=== PATIENT | male | born 1975 | race Caucasian/White ===

== ENCOUNTER 2024-03-13 09:52 | Emergency (ER) | payer BC, OTHER ==
[2024-03-13] MEDS ORDERED: NA CHLORIDE 0.9% 1,000 ML ONE (10:06)
[2024-03-13 10:32] LABS: Absolute Basophils 0.1 K/uL (0-0.5); Absolute Eosinophils 0.1 K/uL (0-0.5); Absolute Lymphocytes (CBC) 2.5 K/uL (0.7-4.9); Absolute Monocytes 0.5 K/uL (0.1-1.3); Absolute Neutrophil 5.3 K/uL (1.8-8.0); Basophils % 0.6 % (0-1.3); Eosinophils % 1.6 % (0-4.4); Hematocrit 28.6 % (39.6-49.0); Hemoglobin 9.4 g/dL (13.6-17.9); Lymphocytes % 29.3 % (15.3-44.8); MCH 26.5 pg (27.0-35.0); MCHC 32.9 g/dL (32.0-36.0); MCV 80.6 fL (80-100); Monocytes % 5.5 % (3.3-12.3); Platelets 361 thou/uL (152-406); RBC Red Blood Cell Count 3.55 M/uL (4.33-5.43); Red Cell Distribution Width 14.1 % (12.1-15.2)
[2024-03-13 10:51] LABS: ALT/SGPT 17 U/L (16-61); Albumin 3.7 g/dL (3.4-5.0); Albumin/Globulin Ratio 1.1 (1.1-1.8); Alkaline Phosphatase 53 U/L (45-117); Anion Gap 10.3 mEq/L (5.0-15.0); BUN Blood Urea Nitrogen 11 mg/dL (7-18); Bicarbonate 25 mEq/L (21-32); Bilirubin Total 0.3 mg/dL (0.2-1.0); Globulin 3.3 g/dL (2.3-3.5); Glomerular Filtration Rate 65 ml/min (=/>90); Glucose Level 172 mg/dL (74-106); Potassium 3.3 mEq/L (3.5-5.1); Sodium Level 140 mEq/L (136-145)
[2024-03-13 10:52] LABS: AST/SGOT < 10 U/L (15-37)
--- NOTE | 2024-03-13 11:23 | ER ---
Nurse's Notes [facility] Name: Alex Burgos II Age: 48 yrs Sex: Male : 1975 Arrival Date: 03/13/2024 Time: 09:52 Bed 15 Private MD: Diagnosis: Other hemorrhoids-INTERNAL , BANDED;GI Bleed/ Gastrointestinal hemorrhage, unspecified-LOWER;Acute posthemorrhagic anemia Presentation: 03/13 10:07 Chief complaint: Patient states: bright red blood in stool x 6 weeks. Dizziness that ss began 4 days ago. Coronavirus screen: Client denies travel out of the [place] in the last 14 days. Ebola Screen: Patient denies exposure to infectious person. Patient denies travel to an Ebola-affected area in the 21 days before illness onset. 10:07 Method Of Arrival: Ambulatory ss 10:11 Initial Sepsis Screen: Does the patient meet any 2 criteria? No. Patient's initial ss sepsis screen is negative. Does the patient have a suspected source of infection? No. Patient's initial sepsis screen is negative. Risk Assessment: Do you want to hurt yourself or someone else? Patient reports no desire to harm self or others. 10:11 Acuity: ERIKA 3 ss 10:12 Onset of symptoms was January 2024. ss Historical: - Allergies: 10:13 No Known Allergies; ss - Home Meds: 10:13 None [Active]; ss - PMHx: 10:33 None; ss - PSHx: 10:33 hemorrhoid banding; ss - Immunization history:: Client reports having NOT received the Covid vaccine. - Infectious Disease History:: Denies. - Family history:: not pertinent. - Social history:: Smoking status: Patient reports the use of cigarette tobacco products, smokes one-half pack cigarettes per day. Screenin:34 Abuse screen: Denies threats or abuse. Denies injuries from another. Nutritional ss screening: No deficits noted. Tuberculosis screening: Never had TB. 10:46 [facility] ED Fall Risk Assessment (Adult) History of falling in the last 3 months, ko1 including since admission No falls in past 3 months (0 pts) Confusion or Disorientation No (0 pts) Intoxicated or Sedated No (0 pts) Impaired Gait No (0 pts) Mobility Assist Device Used No (0 pt) Altered Elimination No (0 pt) Score/Fall Risk Level 0 - 2 = Low Risk Oriented to surroundings, Maintained a safe environment, Educated pt \T\ family on fall prevention, incl call for assistance when getting out of bed, Assessed \T\ reinforced patient's understanding of fall precautions, Provided non-skid footwear, Hourly rounding (assess needs \T\ fall precautionary measures) done. Assessment: 10:34 Reassessment: when asked patient initially stated yes to history of varices, but after ss asking again and clarifying, patient and family member stated that in fact he does NOT have hx of varices and that it was a hemorrhoid banding procedure he has had done in the past. Dr. Sarkar and Dr. Fowler notified. Dr. Fowler at bedside assessing pt at this time. 11:00 General: Appears in no apparent distress. Behavior is calm, cooperative, appropriate ko1 for age. Pain: Denies pain. Neuro: No deficits noted. Cardiovascular: No deficits noted. Respiratory: No deficits noted. GI: Reports rectal bleeding. : No deficits noted. EENT: No deficits noted. Derm: No deficits noted. Musculoskeletal: No deficits noted. Vital Signs: 10:07 BP 129 / 83; Pulse 95; Resp 16; Temp 97.8; Pulse Ox 100% on R/A; Weight 77.11 kg; ss Height 5 ft. 6 in. ; Pain 0/10; 10:46 BP 101 / 70; Pulse 85; Resp 15; Pulse Ox 99% ; ko1 10:56 BP 119 / 72 LA Supine (auto/reg); Pulse 85; ko1 10:57 BP 116 / 76 LA Sitting (auto/reg); Pulse 88; ko1 10:58 BP 117 / 80 LA Standing (auto/reg); Pulse 82; ko1 10:07 Body Mass Index 27.44 (77.11 kg, 167.64 cm) ss 10:07 Pain Scale: Adult ss ED Course: 09:55 Patient arrived in ED. ra3 09:58 Omer Sarkar MD is Attending Physician. jung 10:00 Archana Arzola, CATHY is Primary Nurse. ko1 10:11 Triage completed. ss 10:13 Arm band placed on right wrist. ss 10:15 Initial lab(s) drawn, by me, sent to lab. Inserted saline lock: 20 gauge in right ko1 forearm, using aseptic technique. Blood collected. Flushed with 10 mL NS. 10:18 CBC with Diff Sent. ko1 10:18 Comprehensive Metabolic Panel Sent. ko1 10:46 Patient has correct armband on for positive identification. Placed in gown. Bed in low ko1 position. Call light in reach. Side rails up X 1. Provided Education on: labs. Client placed on continuous cardiac and pulse oximetry monitoring. NIBP monitoring applied. child monitor on. Door closed. Noise minimized. Lights dimmed. Warm blanket given. Pillow given. 10:46 No provider procedures requiring assistance completed. ko1 11:23 Yordan Fowler MD is Referral Physician. [facility] 11:23 Sher Mishra MD is Referral Physician. [facility] 11:46 PT-INR Sent. ko1 11:49 Lab(s) recollected, by me, sent to lab. em1 12:00 IV discontinued, intact, bleeding controlled, No redness/swelling at site. Pressure ko1 dressing applied. Administered Medications: 10:18 Drug: NS 0.9% IV 1000 ml IV at 1000 ml once; to be given as a bolus over 60 minutes ko1 Route: IV; Rate: 1000 ml; Site: right forearm; 10:59 Follow up: Response: No adverse reaction; IV Status: Completed infusion; IV Intake: ko1 1000ml 11:46 Drug: Docusate PO 100 mg PO once Route: PO; ko1 12:00 Follow up: Response: No adverse reaction; Medication administered at discharge. ko1 Medication: 10:46 VIS not applicable for this client. ko1 Intake: 10:59 IV: 1000ml; Total: 1000ml. ko1 Outcome: 11:23 Discharge ordered by . [facility] 12:00 Discharged to home ambulatory, with family, ko1 12:00 Condition: stable 12:00 Discharge instructions given to patient, family, Instructed on discharge instructions, follow up and referral plans. medication usage, Demonstrated understanding of instructions, follow-up care, medications, Prescriptions given X 2, 12:21 Patient left the ED. ko1 Signatures: Omer Sarkar MD MD cha Martinez, Eric em1 Paige Pagan RN RN Archana Grace RN RN ko1 Jennifer White ra3 Corrections: (The following items were deleted from the chart) 10:33 10:07 Chief complaint: Patient states: bright red blood in stool x 6 weeks. Dizziness ss that began 4 days ago. HX of esophageal varices : 10:13 PMHx: esophageal varices; ss : 10:13 PSHx: varices banding; ss
--- NOTE | 2024-03-13 11:23 | EDPHYS ---
Physician Documentation [facility] Name: Alex Burgos II Age: 48 yrs Sex: Male : 1975 Arrival Date: 03/13/2024 Time: 09:52 Bed 15 Private MD: ED Physician Omer Sarkar HPI: 03/13 10:10 This 48 yrs old Male presents to ER via Unassigned with complaints of jung Weakness, Dizziness. 10:10 The patient presents to the emergency department with rectal bleeding, in toilet bowl. jung Onset: The symptoms/episode began/occurred 2 week(s) ago. Abdominal pain: none is appreciated. Modifying factors: The symptoms are alleviated by nothing, the symptoms are aggravated by movement. hemorrhoid banding by [place]. The patient presents with dizziness. Onset: The symptoms/episode began/occurred 14 day(s) ago. Context: occurred at home. Modifying factors: The symptoms are alleviated by lying down, the symptoms are aggravated by standing up, changing position. Historical: - Allergies: 10:13 No Known Allergies; ss - Home Meds: 10:13 None [Active]; ss - PMHx: 10:33 None; ss - PSHx: 10:33 hemorrhoid banding; ss - Immunization history:: Client reports having NOT received the Covid vaccine. - Infectious Disease History:: Denies. - Family history:: not pertinent. - Social history:: Smoking status: Patient reports the use of cigarette tobacco products, smokes one-half pack cigarettes per day. ROS: 10:10 Constitutional: Negative for fever, chills, and weight loss, Eyes: Negative for injury, jung pain, redness, and discharge, ENT: Negative for injury, pain, and discharge, Neck: Negative for injury, pain, and swelling, Cardiovascular: Negative for chest pain, palpitations, and edema, Respiratory: Negative for shortness of breath, cough, wheezing, and pleuritic chest pain, Back: Negative for injury and pain, : Negative for injury, bleeding, discharge, and swelling, MS/Extremity: Negative for injury and deformity, Skin: Negative for injury, rash, and discoloration, Neuro: Negative for headache, weakness, numbness, tingling, and seizure, Psych: Negative for depression, anxiety, suicide ideation, homicidal ideation, and hallucinations, Allergy/Immunology: Negative for hives, rash, and allergies, Endocrine: Negative for neck swelling, polydipsia, polyuria, polyphagia, and marked weight changes, Hematologic/Lymphatic: Negative for swollen nodes, abnormal bleeding, and unusual bruising, 10:10 Abdomen/GI: Positive for abdominal pain, rectal pain, rectal bleeding, Exam: 10:10 Constitutional: This is a well developed, well nourished patient who is awake, alert, jung and in no acute distress. Head/Face: Normocephalic, atraumatic. Eyes: Pupils equal round and reactive to light, extra-ocular motions intact. Lids and lashes normal. Conjunctiva and sclera are non-icteric and not injected. Cornea within normal limits. Periorbital areas with no swelling, redness, or edema. ENT: Nares patent. No nasal discharge, no septal abnormalities noted. Tympanic membranes are normal and external auditory canals are clear. Oropharynx with no redness, swelling, or masses, exudates, or evidence of obstruction, uvula midline. Mucous membranes moist. Neck: Trachea midline, no thyromegaly or masses palpated, and no cervical lymphadenopathy. Supple, full range of motion without nuchal rigidity, or vertebral point tenderness. No Meningismus. Chest/axilla: Normal chest wall appearance and motion. Nontender with no deformity. No lesions are appreciated. Cardiovascular: Regular rate and rhythm with a normal S1 and S2. No gallops, murmurs, or rubs. Normal PMI, no JVD. No pulse deficits. Respiratory: Lungs have equal breath sounds bilaterally, clear to auscultation and percussion. No rales, rhonchi or wheezes noted. No increased work of breathing, no retractions or nasal flaring. Abdomen/GI: Soft, non-tender, with normal bowel sounds. No distension or tympany. No guarding or rebound. No evidence of tenderness throughout. Back: No spinal tenderness. No costovertebral tenderness. Full range of motion. Skin: Warm, dry with normal turgor. Normal color with no rashes, no lesions, and no evidence of cellulitis. MS/ Extremity: Pulses equal, no cyanosis. Neurovascular intact. Full, normal range of motion. Neuro: Awake and alert, GCS 15, oriented to person, place, time, and situation. Cranial nerves II-XII grossly intact. Motor strength 5/5 in all extremities. Sensory grossly intact. Cerebellar exam normal. Normal gait. Psych: Awake, alert, with orientation to person, place and time. Behavior, mood, and affect are within normal limits. Vital Signs: 10:07 BP 129 / 83; Pulse 95; Resp 16; Temp 97.8; Pulse Ox 100% on R/A; Weight 77.11 kg; ss Height 5 ft. 6 in. ; Pain 0/10; 10:46 BP 101 / 70; Pulse 85; Resp 15; Pulse Ox 99% ; ko1 10:56 BP 119 / 72 LA Supine (auto/reg); Pulse 85; ko1 10:57 BP 116 / 76 LA Sitting (auto/reg); Pulse 88; ko1 10:58 BP 117 / 80 LA Standing (auto/reg); Pulse 82; ko1 10:07 Body Mass Index 27.44 (77.11 kg, 167.64 cm) ss 10:07 Pain Scale: Adult ss MDM: 09:58 Medical Screening Exam initiated jung 10:10 Differential diagnosis: hemorrhoids. Differential Diagnosis. Differential diagnosis: GI jung bleed, hypovolemia, idiopathic dizziness, near-syncope. Data reviewed: vital signs, nurses notes. Consideration of Admission/Observation Escalation of care including admission/observation considered. I considered the following discharge prescriptions or medication management in the emergency department Medications were administered in the Emergency Department. See JUL. 03/13 09:59 Order name: CBC with Diff [facility] 03/13 09:59 Order name: Comprehensive Metabolic Panel; Complete Time: 11:19 [facility] 03/13 11:20 Order name: PT-INR; Complete Time: 12:19 [facility] 03/13 10:43 Order name: Orthostatic Blood Pressure; Complete Time: 10:59 [facility] 03/13 11:20 Order name: PO challenge: JUICE; Complete Time: 11:46 [facility] Administered Medications: 10:18 Drug: NS 0.9% IV 1000 ml IV at 1000 ml once; to be given as a bolus over 60 minutes ko1 Route: IV; Rate: 1000 ml; Site: right forearm; :59 Follow up: Response: No adverse reaction; IV Status: Completed infusion; IV Intake: ko1 1000ml 11:46 Drug: Docusate PO 100 mg PO once Route: PO; ko1 12:00 Follow up: Response: No adverse reaction; Medication administered at discharge. ko1 Disposition Summary: 03/13/24 11:23 Discharge Ordered Notes: Location: Home jung Problem: new jung Symptoms: are unchanged jung Condition: Stable jung Diagnosis - Other hemorrhoids - INTERNAL , BANDED jung - GI Bleed/ Gastrointestinal hemorrhage, unspecified - LOWER jung - Acute posthemorrhagic anemia jung Followup: jung - With: Private Physician - When: 2 - 3 days - Reason: Recheck today's complaints, Continuance of care, Re-evaluation by your physician Followup: jung - With: Yordan Fowler MD - When: 2 - 3 days - Reason: Recheck today's complaints, Re-evaluation by your physician Followup: jung - With: Sher Mishra MD - When: 2 - 3 days - Reason: Recheck today's complaints, Re-evaluation by your physician Discharge Instructions: - Discharge Summary Sheet jung - Anemia jung - Gastrointestinal Bleeding jung - Hemorrhoids jung - Rectal Bleeding jung - How to Take a Sitz Bath jung - Hemorrhoids, Ckrq-eh-Lsqi jung - Gastrointestinal Bleeding, Wmbj-fi-Pyvt jung - Rectal Bleeding, Gxnf-ac-Xnje jung - Surgical Procedures for Hemorrhoids jung - Lower Gastrointestinal Bleeding jung Forms: - Medication Reconciliation Form jung - Antibiotic Education jung - Prescription Opioid Use jung - Patient Portal Instructions jung - Leadership Thank You Letter [facility] Prescriptions: - Colace 100 mg Oral Tablet - take 1 tablet ORAL route every 12 hours; 14 tablet; Refills: 0, Product jung Selection Permitted - Anusol-HC 25 mg Rectal Suppository - insert 1 suppository RECTAL route every 12 hours As needed; 20 suppository; [facility] Refills: 0, Product Selection Permitted Signatures: Dispatcher [employer] Omer Montanez MD MD cha Blanchard, Shelby RN RN ss Archana Arzola RN RN ko1 Corrections: (The following items were deleted from the chart) 10:34 10:13 PMHx: esophageal varices; ss ss 10:34 10:13 PSHx: varices banding; ss ss
[2024-03-13] MEDS ORDERED: DOCUSATE NA 100 MG CAP PO ONE (11:37)
--- NOTE | 2024-03-13 11:51 | CON ---
Date of Consultation: 03/13/2024 Chief Complaint: Rectal bleeding. History Of Present Illness: The patient is a 48-year-old gentleman who has had problems with interna l hemorrhoids for the last 6 weeks. He has been seeing Dr. Mishra every 2 weeks for internal hemorrh oid banding, last one was approximately 2 to 3 weeks ago. He had continuous pain with bowel movement and occasionally while he urinates as well. It is bright red in nature. He has had a colonoscopy w hich was unremarkable other than the internal hemorrhoids. He denies any abdominal pain. No nausea or vomiting. No diarrhea or constipation. No dysuria or hematuria. No sore throat, runny nose, cou gh, headaches, dizziness. No chest pain. Review of Systems: Otherwise unremarkable. Past Medical History: Negative. Past Surgical History: Shoulder surgery. Social History: The patient does not smoke. Drinks occasionally. Family History: Noncontributory. Physical Examination: Vital Signs: Stable. Head and Neck: No masses. Chest: Clear. Heart: S1, S2. Abdomen: Soft. Extremities: Neurovascularly intact. Neuro: Nonfocal. Rectal: Reveals a little bit of bright red blood. No active bleeding appreciated. No rectal mass a ppreciated. Laboratory Data: H and H are 9.4 and 28.6. Assessment: Rectal bleeding probably from the site of the internal banding where the scab came off. Recommendations: Sitz bath suppository. Follow up with Dr. Mishra. If it continues he m ay need surgical intervention. Dr. Mishra was contacted by Dr. Sarkar. Patient will see him this week and we will make him to evaluate whether the patient needs surgical intervention or not or wheth er he can take care of it in the office. Plan of care discussed with the patient. /MODL Voice ID: [id number] Report ID: [id number]
[2024-03-13 11:56] LABS: PT Prothrombin Time 12.5 SECONDS (9.4-12.5); Protime INR 1.12
[2024-03-13 21:55] VITALS: TEMP 97.8
[2024-03-13 22:01] VITALS: O2SAT 99
[2024-03-13 22:08] VITALS: BP 117/80
== END 2024-03-13 12:21 | disposition home or self-care (01) ==
LOC: ER 09:52
DX: K64.8 Other hemorrhoids (principal); D62 Acute posthemorrhagic anemia; F17.210 Nicotine dependence, cigarettes, uncomplicated
CPT/HCPCS: 85025; 36415; 85610; 80053; J7030; 96360; 99285

== ENCOUNTER 2024-03-16 09:21 | Day surgery (SDC) | payer BC ==
[2024-03-16] MEDS: Ringers Lactate 1,000 ML IV ONE (09:30)
[2024-03-16] MEDS ORDERED: ONDANSETRON 4 MG/2 ML VIAL ONE (09:31)
[2024-03-16] MEDS ORDERED: FENTANYL CITR 100 MCG/2 ML ONE (09:31)
[2024-03-16] MEDS ORDERED: propofoL 200 MG/20 ML VIAL IV ONE (09:31)
[2024-03-16] MEDS ORDERED: MIDAZOLAM HCL 2 MG/2 ML INJ ONE (09:32)
[2024-03-16] MEDS ORDERED: LIDOCAINE JELLY 2% 5 ML SYRINGE TOP ONE (10:02)
[2024-03-16] MEDS: CEFOXITIN SODIUM 2 GM/VIAL ONE (10:55)
[2024-03-16] MEDS: LIDOCAINE HCL/EPINEPHRINE 20 ML MDV ONE (11:13)
[2024-03-16] MEDS ORDERED: MORPHINE 10 MG/ML VIAL ONE (11:22)
[2024-03-16] MEDS: LIDOCAINE 2% MPF 5 ML VIAL ONE (11:37)
--- NOTE | 2024-03-16 11:43 | P.OP ---
Preoperative diagnosis: Rectal Bleeding, Hemorrhoids Postoperative diagnosis: Rectal Bleeding, Hemorrhoids Primary procedure: Exam under anesthesia, hemorrhoidectomy Secondary procedure: ligation of bleeding vessel Anesthesia: GETA + Local Estimated blood loss: < 5cc Specimen: Hemorrohids Findings: Bleeding Vessel @ 7oclock position Complications: None Implants: Gelfoam Transferred to: Recovery Room Condition: Good
[2024-03-16 13:12] VITALS: BP 129/89; O2SAT 100
[2024-03-16 13:22] VITALS: TEMP 97.6
--- NOTE | 2024-03-16 16:49 | OP ---
Date of Procedure: 03/16/2024 Surgeon: Reece Yancey MD, Preoperative Diagnoses: Rectal bleeding and hemorrhoids. Postoperative Diagnoses: Rectal bleeding and hemorrhoids. Procedures Performed: 1.Exam under anesthesia. 2.Excision of internal hemorrhoids. 3.Excision of external hemorrhoids. 4.Ligation of bleeding vessel/hemorrhoid at the 7 o'clock position. Anesthesia: General endotracheal plus local with 1% lidocaine with epinephrine. Estimated Blood Loss: Less than 5 cc. Specimen: Hemorrhoids. Findings: There was a bleeding vessel at the 7 o'clock position which was noted preoperatively, whic h was the reason for the procedure. Complications: None. Implants: Gelfoam soaked in lidocaine jelly. Disposition: The patient transferred to recovery room in good condition. Procedure In Detail: After informed consent was obtained, patient was brought to the operating room, prepped and draped in the usual sterile fashion. After adequate anesthesia was achieved, I placed a n anoscope, sequentially larger anoscope into the anal canal and saw a bleeding vessel at approximate ly the 7 o'clock position. I irrigated the area under good vision. I saw the erosion/bleeding visib le vessel in the anal mucosa. I used a 3-0 chromic suture to ligate this vessel with good approximat ion of the tissues and good hemostasis. At this point, I then turned my attention to the right colum n of hemorrhoids which were large on the internal aspect. I demarcated the edges of the mucosa and s eparated the hemorrhoid from the surrounding tissue. I then used the LigaSure device to remove the h emorrhoid and reapproximated the mucosa overlying the top using the same set 3-0 chromic suture in a running fashion with good approximation of the tissues. I then turned my attention to a large salon assistant al anal hemorrhoid. There were several in this area. I opted to take the largest of these. I radha cated area using the electrocautery around the area of the large external anal hemorrhoid, the anoderm bluntly from the hemorrhoid and then ligated the hemorrhoid using the same set LigaSure d evice. I then reapproximated the skin and anoderm tissue using a 3-0 chromic suture once again. I t hen inspected the anal vault once again with the anoscope and placed a Gelfoam soaked in lidocaine je lly into the anal canal after appropriately hydrating and a sterile dressing placed over top. The pa tient tolerated the procedure without incident or complication well and transferred to PACU in good c ondition. All counts were correct at the end of the case. NINA/TAI Voice ID: [id number] Report ID: [id number]
--- NOTE | 2024-03-17 14:57 | EKG ---
Test Date: 2024-03-15 Test Time: 11:40:33 Electro Mechanical Assembler: LEW MEASUREMENT RESULTS: Intervals: Rate: 64 WA: 140 QRSD: 92 QT: 390 QTc: 402 [place]: P: 50 WA: 140 QRS: 46 T: 40 INTERPRETIVE STATEMENTS: Normal sinus rhythm Normal ECG No previous ECG available for comparison Electronically Signed On 03-17-24 14:48:37 CDT by Galo Guerrier
== END 2024-03-16 13:10 | disposition home or self-care (01) ==
LOC: OR 09:21
PROVIDERS: ATTEND Surgery
PROC: 06BY0ZC Excision of Hemorrhoidal Plexus, Open Approach (ICD-10-PCS; principal; 2024-03-16 12:00)
DX: K64.8 Other hemorrhoids (principal); K62.5 Hemorrhage of anus and rectum
CPT/HCPCS: 46260; 93005; J2704; J2003; J2250; J3010; J0694; J2405; J7120; 88304